=== PATIENT | female | born 1960 | race Caucasian/White ===

== ENCOUNTER 2020-12-06 09:18 | Emergency (ER) | payer OTHER, BC ==
[~2020-12-06] VITALS: Ht 160 cm; Wt 99.8 kg
[2020-12-06] MEDS ORDERED: HYDROCODON-ACE1 EAC7 PO (11:59)
[2020-12-06 12:17] VITALS: BP 133/75
== END 2020-12-06 12:18 | disposition home or self-care (01) ==
LOC: M.ERS 09:18
DX: S86.812A Strain of other muscle(s) and tendon(s) at lower leg level, left leg, initial encounter (principal); S86.811A Strain of other muscle(s) and tendon(s) at lower leg level, right leg, initial encounter; Z98.890 Other specified postprocedural states; W01.0XXA Fall on same level from slipping, tripping and stumbling without subsequent striking against object, initial encounter; Y93.89 Activity, other specified; Y92.89 Other specified places as the place of occurrence of the external cause; Y99.8 Other external cause status